=== PATIENT | female | born 1975 | race Caucasian/White ===

== ENCOUNTER → 2016-11-02 | Outpatient (CLI) | payer BC ==
--- NOTE | ~2016-11-02 | MY6 ---
[facility] A Service of [facility] & [facility] / [facility] RADIOLOGY TEXT RESULTS PATIENT: JESUS BRADY LOCATION: [facility] : [birth year] UNIT #: [id number] AGE: [address]: CHELSEY AVILA SEX: F ORDER DR: [id number] [facility]. [place], [place] [address] [id number] O MR#: [id number] Acc #: [id number] NAME: JESUS BRADY. : 1975 SEX: F STUDY DATE/TIME: 11/02/2016 9:53 UNIT: [facility] ROOM: STUDY DESCRIPTION: MY Mammogram Dx Dig [place] Attending Physician: Chelsey Avila Referring Physician: Chelsey Avila Ordering Physician: Physician Non-Staff Primary Care Physician: Primary Care Physician No MEDICAL IMAGING REPORT This report is preliminary unless electronic signature is present EXAM Bilateral digital diagnostic mammogram with CAD 11/02/2016 INDICATIONS 41-year-old female presenting for 6-month followup of abnormalities on prior mammograms performed 02/24/2016 and 04/26/2016. Followup to ultrasound 04/26/2016 as well. No current problems. Right-sided nodule and left-sided asymmetry. No personal history of breast cancer. Family history positive (degree of relative not indicated). No prior surgeries. TECHNIQUE CC and MLO views of the breast were obtained and reviewed with an approved CAD device. COMPARISON 02/24/2016 and 04/26/2016. FINDINGS A two-view diagnostic mammogram was performed to document stability of previously imaged findings in both breasts. The breast parenchyma remains heterogeneously dense, degrading sensitivity of screening mammography. The pattern is unchanged. There is no new dominant nodule mass or suspicious cluster of microcalcifications. There are benign calcifications present. Benign appearing intramammary node in the posterior upper outer hemisphere right breast measures 3-4 mm and is stable. Additional axillary node on the right unchanged. Given stability of findings bilaterally over the past 6 months, suggest a followup screening mammogram bilaterally and April 22, 2017 to return to an annual screening protocol. Findings and recommendations were discussed with the patient. She voiced understanding and agreement. STS. [facility] A Service of [facility] & [facility] / [facility] RADIOLOGY TEXT RESULTS PATIENT: JESUS BRADY LOCATION: [facility] : [birth year] UNIT #: [id number] AGE: [address]: CHELSEY AVILA SEX: F ORDER DR: IMPRESSION 1. Stable appearance of the parenchymal pattern in both breasts bilaterally. Stable intramammary node in the right breast. Suggest return to an annual screening protocol with a bilateral screening mammogram in April 22, 2017 as described above. Patients over the age of 40 are entered into a reminder system with target due date for the next mammogram. A result letter will also be sent to the patient. BIRADS: 3; Probably benign findings. Short term followup recommended. Dictated by... Mack Hayward M.D. THIS IS AN ELECTRONICALLY VERIFIED REPORT Mack Hayward M.D. at 11/02/2016 5:24 PM [place] TD: 11/02/2016 10:43 JOB #: [id number] MEDICAL IMAGING REPORT Page 1 of 1 COPY
== END | disposition home or self-care (01) ==
LOC: CMAM 09:36
DX: R92.8 Other abnormal and inconclusive findings on diagnostic imaging of breast (principal)
CPT/HCPCS: G0204

== ENCOUNTER → 2016-12-02 | Outpatient (CLI) | payer BC ==
--- NOTE | ~2016-12-02 | EKG ---
PATIENT: JESUS BRADY UNIT #: [id number] Ventricular Rate: 63 BPM Atrial Rate: 63 BPM P-R Interval: 126 ms QRS Duration: 90 ms Q-T Interval: 432 ms QTC Calculation(Bezet): 442 ms P [place]: 33 degrees Calculated R [place]: 30 degrees Calculated T [place]: 31 degrees Diagnosis Line: Normal sinus rhythm with sinus arrhythmia Diagnosis Line: Normal ECG Diagnosis Line: No previous ECGs available Diagnosis Line: Confirmed by KATERINA MCNEILL MD ([id number]) on Diagnosis Line: 12/04/2016 10:03:00 AM INTERPRETING MD: ANNIE
[2016-12-02 08:17] LABS: BASOPHIL# 0.1 X10e3 (0-0.3); BASOPHIL% 1.1 % (0-2.5); EOSINOPHIL# 0.3 X10e3 (0-0.7); EOSINOPHIL% 3.5 % (0.0-7.0); HEMATOCRIT 43.9 % (35.0-45.0); HEMOGLOBIN 14.4 gm/dL (12.0-16.0); LYMPHOCYTE# 2.2 X10e3 (1.0-3.5); LYMPHOCYTE% 28.8 % (17.0-45.0); MEAN CELL VOLUME 84.9 FL (83-96); MEAN CORPUSCULAR HEMOGLOBIN 27.9 PG (28-34); MEAN CORPUSCULAR HGB CONC 32.8 g/dL (30-36); MEAN PLATELET VOLUME 8.4 FL (6.5-11.5); MONOCYTE# 0.4 X10e3 (0-1.0); MONOCYTE% 5.2 % (3.0-12.0); NEUTROPHIL# 4.7 X10e3 (1.5-7.1); NEUTROPHIL% 61.4 % (40-75); PLATELET COUNT 310 X10e3 (140-420); RED BLOOD COUNT 5.18 X10e (3.90-5.30); WHITE BLOOD COUNT 7.6 X10e3 (4.0-10.5)
[2016-12-02 08:21] LABS: DIFF IND NO
[2016-12-02 09:12] LABS: ALKALINE PHOSPHATASE 124 U/L (32-92); ALT (SGPT) 20 U/L (10-40); AST (SGOT) 19 U/L (10-42); BILIRUBIN,TOTAL 0.6 mg/dL (0.2-2.0); BLOOD UREA NITROGEN 17 mg/dL (9-23); BUN/CREATININE RATIO 28.33; CALCIUM SERUM 9.7 mg/dL (8.4-10.2); CARBON DIOXIDE 27 mmol/L (22-31); CHLORIDE 99 mmol/L (100-111); CHOLESTEROL 308 mg/dL (0-200); CREATININE SERUM 0.6 mg/dL (0.6-1.4); GLUCOSE FASTING 373 mg/dL (70-110); HDL CHOLESTEROL 41 mg/dL (35-95); POTASSIUM 4.3 mmol/L (3.5-5.1); PROTEIN TOTAL SERUM 7.1 g/dL (6.0-8.3); SODIUM 135 mmol/L (135-145)
[2016-12-02 09:16] LABS: TRIGLYCERIDES 409 mg/dL (10-160)
== END | disposition home or self-care (01) ==
LOC: CLAB 07:47
DX: I10 Essential (primary) hypertension (principal); E11.9 Type 2 diabetes mellitus without complications
CPT/HCPCS: 36415; 80053; 80061; 82043; 83036; 84436; 84443; 85025; 93005